=== PATIENT | male | born 1945 | race Caucasian/White ===

== ENCOUNTER 2021-11-09 10:49 | Emergency (ER) | payer MEDICARE, SELFPAY ==
[2021-11-09 11:00] VITALS: BP 126/84; PULSE 80; RESP 16; TEMP 37.2; O2SAT 99; BMI 25.0
--- NOTE | 2021-11-09 12:10 | ED_ITS ---
HPI - URI/Sore Throat <Yan Fofana PA-C - Last Filed: 11/09/21 12:32> General Chief Complaint: Upper Respiratory Symptoms Stated Complaint: COVID+ wants meds Time Seen by Provider: 11/09/21 12:05 History of Present Illness HPI Narrative: Patient is a 75-year-old male presents to the ED who tested positive for COVID- 19 a yesterday from a home test. He is currently vaccinated and is not having any significant symptoms however is interested in the antiviral medication. Patient denies any shortness of breath he denies any cough no reported fever he does have some mild fatigue. Patient does not have any other comorbidities reported. He denies any nausea vomiting or diarrhea. Patient has traveled from the [place] area. Patient also reports that his tested positive 2 days ago. Related Data Previous Rx's Medication Instructions Recorded nirmatrelvir 150 mg-ritonavir 100 See Rx Instructions PO .COMPLEX #5 11/09/21 mg tablet (EUA) (Paxlovid) tabs Review of Systems <Yan Fofana PA-C - Last Filed: 11/09/21 12:32> Review of Systems ROS Unobtainable: All systems reviewed & are unremarkable except as noted in HPI and below Constitutional Constitutional: Denies chills, Reports fatigue, Denies fever(s), Denies frequent falls, Denies lethargy and Denies weakness Eyes Eyes: Denies change in vision, Denies eye discharge, Denies irritation and Denies loss of vision ENT Ears, Nose, Mouth, and Throat: Denies change in voice, Denies dizziness, Denies neck pain, Denies sore throat and Denies throat swelling Cardiovascular Cardiovascular: Denies chest pain, Denies irregular heart rhythm, Denies lightheadedness, Denies palpitations, Denies dyspnea, Denies dyspnea on exertion and Denies orthopnea Respiratory Respiratory: Denies cough, Denies dyspnea, Denies dyspnea on exertion and Denies wheezing Gastrointestinal Gastrointestinal: Denies abdominal pain, Denies change in bowel habits, Denies diarrhea, Denies nausea and Denies vomiting Genitourinary Genitourinary: Denies hematuria, Denies flank pain, Denies urinary incontinence and Denies urinary urgency Musculoskeletal Musculoskeletal: Denies back pain, Denies muscle weakness, Denies neck pain, Denies numbness and Denies tingling Integumentary/Breasts Skin/Breast: Denies pruritus, Denies erythema, Denies rash and Denies wounds Neurologic Neurologic: Denies behavioral changes, Denies confusion, Denies dizziness, Denies frequent falls, Denies loss of vision, Denies numbness, Denies tingling and Denies weakness Psychiatric Psychiatric: Denies anxiety, Denies behavioral changes, Denies confusion, Denies depression, Denies homicidal ideation and Denies suicidal ideation Endocrine Endocrine: Reports fatigue, Denies flushing and Denies palpitations Hematologic/Lymphatic Hematologic/Lymphatic: Denies easy bruising Allergic/Immunologic Allergic/Immunologic: Denies urticaria, Denies throat swelling and Denies wheezing Exam <Yan Fofana PA-C - Last Filed: 11/09/21 12:32> Initial Vital Signs Initial Vital Signs: Vital Signs Temperature 98.9 F 11/09/21 11:00 Pulse Rate 80 11/09/21 11:00 Respiratory Rate 16 11/09/21 11:00 Blood Pressure 126/84 11/09/21 11:00 Pulse Oximetry 99 11/09/21 11:00 Oxygen Delivery Method 11/09/21 11:00 Const General: cooperative, healthy appearing, comfortable and well developed Nutritional Appearance: average body habitus [facility] Head: normal to inspection, normocephalic and atraumatic Ears: hearing grossly normal bilaterally Nose: external nose normal Face and sinus: normal facial exam Mouth: oral mucosae normal Teeth and gingiva: dentition normal Neck Neck: normal visual inspection, full ROM and no meningeal signs Resp Effort & Inspection: normal respiratory effort and able to speak in complete sentences Auscultation: clear to auscultation bilaterally Cardio Palpation: normal PMI Rate: regular rate Rhythm: regular rhythm Heart Sounds: S1 normal and S2 normal GI Inspection: normal to inspection Palpation: soft and no hepatosplenomegaly Percussion: normal to percussion Auscultation: normal bowel sounds <Letitia Xie MD - Last Filed: 11/09/21 17:13> Initial Vital Signs Initial Vital Signs: Vital Signs Temperature 98.9 F 11/09/21 11:00 Pulse Rate 80 11/09/21 11:00 Respiratory Rate 16 11/09/21 11:00 Blood Pressure 126/84 11/09/21 11:00 Pulse Oximetry 99 11/09/21 11:00 Oxygen Delivery Method 11/09/21 11:00 Course <Yan Fofana PA-C - Last Filed: 11/09/21 12:32> Vital Signs Vital signs: Vital Signs - 8 hr 11/09/21 11:00 Temperature 98.9 F Pulse Rate 80 Respiratory Rate 16 Blood Pressure 126/84 Pulse Oximetry 99 Oxygen Delivery Method Room Air <Letitia Xie MD - Last Filed: 11/09/21 17:13> Vital Signs Vital signs: Vital Signs - 8 hr 11/09/21 11:00 Temperature 98.9 F Pulse Rate 80 Respiratory Rate 16 Blood Pressure 126/84 Pulse Oximetry 99 Oxygen Delivery Method Room Air MDM - URI/Sore Throat <Yan Fofana PA-C - Last Filed: 11/09/21 12:32> Differential Diagnosis Differential diagnosis: Likely viral infection MDM Narrative Medical decision making narrative: Patient was seen today for a positive COVID test. Patient is vaccinated and is requesting the antiviral medication. Although he does not have any comorbidities I did not have any issue with prescribing it of which the medication will be sent to his pharmacy they have his choice. Patient was advised to follow-up with PCP for any further concerns will travel back home to [place] later in the week. Discharge Plan Departure Patient Disposition: Home Clinical Impression: COVID-19 Instructions: DI for COVID-19 (Suspected or Confirmed ) Prescriptions: New Paxlovid (EUA) 150-100 mg tablet See Rx Instructions .ROUTE .COMPLEX Qty: 5 0RF Rx Instructions: orally per package directions Visit Report Forms: Patient Portal/API <Letitia Xie MD - Last Filed: 11/09/21 17:13> Cosign ED Attending Cosignature Attestation: I was immediately available in the department for consultation throughout this patient's visit. I agree with documentation as above. Letitia Xie MD
--- NOTE | 2021-11-09 12:42 | PC.NURSE ---
assessed treated and DC'd by Yan CASTILLO without RN involvement
== END 2021-11-09 12:42 | disposition home or self-care (01) ==
PROVIDERS: Emergency Provider Physician Assistant
DX: U07.1 COVID-19 (principal)
CPT/HCPCS: 99281